=== PATIENT | male | born 1985 | race Caucasian/White ===

== ENCOUNTER 2016-05-02 18:55 | Emergency (ER) | payer BC ==
[2016-05-02] MEDS ORDERED: NS 1,000 ML IV ONE ×2 (19:34→19:59)
[2016-05-02] MEDS ORDERED: IPRATROPIUM/ALBUTEROL 3 ML DEYVIAL IH ONE (19:38)
--- NOTE | 2016-05-02 19:39 | UCPHY ---
H & P Patient Type: Established Chief Complaint Nursing Narrative: fever, chills, productive cough since saturday, diaphoretic, pale Time Seen by Provider: 05/02/16 19:11 HPI/ROS: 30-year-old male presents complaining of cough, fevers chills weakness., sore throat. Patient vapes. Review of systems As per HPI General positive fever positive chills positive weakness HEENT no eye pain no eye discharge. No eye redness, positive sore throat Respiratory positive cough positive shortness of breath Cardiac no chest pain, no peripheral edema GI no abdominal pain, no diarrhea, no constipation, no nausea, no vomiting no flank pain, no hematuria, no dysuria Musculoskeletal no myalgias, no joint pain Heme no easy bruising, no easy bleeding Endo no polyuria, no polydipsia Skin no rashes, no pruritus Neuro no syncope, no dizziness, no headaches Psych is no suicidal ideation, no homicidal ideation Source: Patient - Personal History Current Tetanus/Diphtheria Vaccine: Unsure - Medical/Surgical History Hx Asthma: No Hx Chronic Respiratory Disease: No Hx Diabetes: No Hx Cardiac Disease: No Hx Renal Disease: No Hx Cirrhosis: No Hx Alcoholism: No Hx HIV/AIDS: No Hx Splenectomy or Spleen Trauma: No Other PMH: hx of bronchitis, history of prior hip surgery - Family History Significant Family History: No pertinent family hx - Social History Smoking Status: Former smoker Alcohol Use: Rarely - Physical Exam Exam: 30-year-old male tachypneic tachycardic, appears ill Atraumatic normocephalic Pupils round reactive to light bilaterally extraocular muscles intact anicteric Oropharynx mild erythema positive dry mucosa Neck supple no lymphadenopathy Lungs clear to auscultation bilaterally Heart rapid rate regular rhythm without murmur rub or gallop Abdomen nondistended bowel sounds present soft nontender Extremities no cyanosis clubbing edema Skin no rash Constitutional: Initial Vital Signs Temperature (C) 36.5 C 05/02/16 19:00 Heart Rate 89 05/02/16 19:00 Respiratory Rate 36 H 05/02/16 19:00 Blood Pressure 129/81 H 05/02/16 19:00 O2 Sat (%) 100 05/02/16 19:00 O2 Delivery Mode Room Air Allergies/Adverse Reactions: Penicillins Allergy (Verified 02/27/16 18:49) Home Medications: Medication Instructions Recorded AZITHROMYCIN [Z-PACK] 250 mg PO DAILY #6 tab 05/02/16 Benzonatate [Tessalon Pearles (RX)] 100 mg PO TID PRN #30 cap 05/02/16 Cefpodoxime Proxetil [Vantin] 200 mg PO BID #14 tab 05/02/16 Guaifenesin/Codeine Phosphate 15 ml PO Q6 PRN #240 ml 05/02/16 [Codeine-Guaifen 10-100 mg/5 ml] Medical Decision Making - Diagnostics Imaging: Chest x-ray bilateral early lower lobe bronchopneumonia ED Course/Re-evaluation: Patient seen and evaluated for cough fevers chills weakness sore throat IV established, 2 L normal saline given, ondansetron 4 mg IV Lab sent Mildly elevated WBC Lactic acid negative Chemistry within normal limits Influenza negative Strep negative Impression Bilateral lower lobe pneumonia Plan Given IV antibiotics in urgent care Given ceftriaxone 2 g IV piggyback Given azithromycin 500 mg IV piggyback Discharge home on Z-Alfonso, cefpodoxime, coding guaifenesin, Tessalon Perles Follow up with primary care physician - Data Points Laboratory Results: Laboratory Results 05/02/16 19:18 05/02/16 19:18 05/02/16 05/02/16 05/02/16 Unknown 19:18 19:13 WBC 11.73 H 10^3/uL (3.80-9.50) RBC 5.19 10^6/uL (4.40-6.38) Hgb 16.0 g/dL (13.7-17.5) Hct 46.0 % (40.0-51.0) MCV 88.6 fL (81.5-99.8) MCH 30.8 pg (27.9-34.1) MCHC 34.8 g/dL (32.4-36.7) RDW 12.0 % (11.5-15.2) Plt Count 288 10^3/uL (150-400) MPV 9.8 fL (8.7-11.7) Neut % (Auto) 73.0 % (39.3-74.2) Lymph % (Auto) 12.5 L % (15.0-45.0) [place] % (Auto) 12.0 % (4.5-13.0) Eos % (Auto) 1.9 % (0.6-7.6) Baso % (Auto) 0.3 % (0.3-1.7) Nucleat RBC Rel Count 0.0 % (0.0-0.2) Absolute Neuts (auto) 8.56 H 10^3/uL (1.70-6.50) Absolute Lymphs (auto) 1.47 10^3/uL (1.00-3.00) Absolute Monos (auto) 1.41 H 10^3/uL (0.30-0.80) Absolute Eos (auto) 0.22 10^3/uL (0.03-0.40) Absolute Basos (auto) 0.04 10^3/uL (0.02-0.10) Absolute Nucleated RBC 0.00 10^3/uL (0-0.01) Immature Gran % 0.3 % (0.0-1.1) Immature Gran # 0.03 10^3/uL (0.00-0.10) VBG Lactic Acid 1.5 mmol/L (0.7-2.1) Sodium 137 mEq/L (134-144) Potassium 4.1 mEq/L (3.5-5.2) Chloride 99 mEq/L (97-110) Carbon Dioxide 19 L mEq/l (22-31) Anion Gap 19 H mEq/L (8-16) BUN 17 mg/dL (7-23) Creatinine 1.0 mg/dL (0.7-1.3) Estimated GFR > 60 Glucose 80 mg/dL (70-100) Calcium 10.0 mg/dL (8.5-10.4) Total Bilirubin 1.1 mg/dL (0.1-1.4) AST 20 IU/L (17-59) ALT 21 IU/L (21-72) Alkaline Phosphatase 72 IU/L (38-126) Lactate Dehydrogenase 481 IU/L (313-618) Creatine Kinase 104 IU/L (0-224) Total Protein 8.2 g/dL (6.3-8.2) Albumin 4.4 g/dL (3.5-5.0) Influenza Typ A,B (DFA) NEGATIVE FOR FLU (NEGATIVE) Group A Strep Screen NEGATIVE (NEGATIVE) Group A Strep DNA Pending Medications Given: Discontinued Medications Acetaminophen (Tylenol) 650 mg PO EDNOW ONE Stop: 05/02/16 22:22 Last Admin: 05/02/16 22:20 Dose: 650 mg Acetaminophen/Hydrocodone Bitart (Hycet Oral Liquid) 15 ml PO EDNOW ONE Stop: 05/02/16 22:46 Last Admin: 05/02/16 23:03 Dose: 15 ml Albuterol/Ipratropium (Duoneb) 3 ml IH EDNOW ONE Stop: 05/02/16 19:39 Last Admin: 05/02/16 19:58 Dose: 3 ml Benzonatate (Tessalon Pearles) 200 mg PO EDNOW ONE Stop: 05/02/16 22:50 Last Admin: 05/02/16 23:03 Dose: 200 mg Sodium Chloride (Ns) 1,000 mls @ 0 mls/hr IV ONCE ONE PRN Reason: Wide Open Stop: 05/02/16 19:35 Last Admin: 05/02/16 19:30 Dose: 1,000 mls Sodium Chloride (Ns) 1,000 mls @ 0 mls/hr IV ONCE ONE PRN Reason: Wide Open Stop: 05/02/16 20:00 Last Admin: 05/02/16 20:00 Dose: 1,000 mls Ceftriaxone Sodium 2 gm/ (Dextrose) 50 mls @ 100 mls/hr IV EDNOW ONE PRN Reason: Protocol Stop: 05/02/16 21:38 Last Admin: 05/02/16 21:22 Dose: Not Given Azithromycin 500 mg/ Dextrose 255 mls @ 255 mls/hr IV DAILY MAMADOU PRN Reason: Protocol Stop: 06/02/16 08:59 Last Admin: 05/02/16 22:00 Dose: 255 mls Ceftriaxone Sodium 2 gm/ (Sodium Chloride) 100 mls @ 200 mls/hr IV EDNOW ONE PRN Reason: Protocol Stop: 05/02/16 21:48 Last Admin: 05/02/16 21:20 Dose: 100 mls Ondansetron HCl (Zofran) 4 mg IVP EDNOW ONE Stop: 05/02/16 22:22 Last Admin: 05/02/16 22:20 Dose: 4 mg Departure - Departure Disposition: Home, Routine, Self-Care Clinical Impression: Pneumonia Condition: Good Instructions: Pneumonia (ED) Referrals: IN STATE,. [Primary Care Provider] - As per Instructions Stand Alone Forms: Work Excuse Prescriptions: Guaifenesin/Codeine Phosphate [Codeine-Guaifen 10-100 mg/5 ml] 15 ml PO Q6 PRN # 240 ml PRN Reason: Cough, Severe Benzonatate [Tessalon Pearles (RX)] 100 mg PO TID PRN #30 cap PRN Reason: Cough, Severe Cefpodoxime Proxetil [Vantin] 200 mg PO BID #14 tab AZITHROMYCIN [Z-PACK] 250 mg PO DAILY #6 tab - PQRS PQRS Measurement: na
[2016-05-02 19:51] LABS: % IMMATURE GRANULYOCYTES 0.3 % (0.0-1.1); ABSOLUTE IMMATURE GRANULOCYTES 0.03 10^3/uL (0.00-0.10); ADD DIFF? NO; ADD MORPH? NO; ADD SCAN? NO; ATYPICAL LYMPHOCYTE FLAG 0 (0-99); FRAGMENT RBC FLAG 0 (0-99); LEFT SHIFT FLG 0 (0-99); LIPEMIA HEMOLYSIS FLAG 90 (0-99); MEAN CELL HEMOGLOBIN 30.8 pg (27.9-34.1); MEAN CELL HEMOGLOBIN CONCENTR. 34.8 g/dL (32.4-36.7); MEAN CELL VOLUME 88.6 fL (81.5-99.8); MEAN PLATELET VOLUME 9.8 fL (8.7-11.7); PLATELET CLUMPS FLAG 0 (0-99); PLATELET COUNT 288 10^3/uL (150-400); RED BLOOD CELL COUNT 5.19 10^6/uL (4.40-6.38)
[2016-05-02 20:04] LABS: ALANINE AMINOTRANSFERASE 21 IU/L (21-72); ALBUMIN 4.4 g/dL (3.5-5.0); ALKALINE PHOSPHATASE 72 IU/L (38-126); ANION GAP 19 mEq/L (8-16); ASPARTATE AMINOTRANSFERASE 20 IU/L (17-59); BILIRUBIN,TOTAL 1.1 mg/dL (0.1-1.4); CARBON DIOXIDE 19 mEq/l (22-31); CHLORIDE 99 mEq/L (97-110); GLOMERULAR FILTRATION RATE > 60; GLUCOSE 80 mg/dL (70-100); POTASSIUM 4.1 mEq/L (3.5-5.2); SODIUM 137 mEq/L (134-144); TOTAL PROTEIN 8.2 g/dL (6.3-8.2)
--- NOTE | 2016-05-02 20:45 | DX ---
PA and lateral chest. 05/02/2016. Clinical History: Cough. Fever. Comparison Study: None available. Findings: Patchy infiltrates in the lower lobes bilaterally suggests early bilateral bronchopneumonia . Heart size is normal. No pleural effusion.. Visualized osseous structures appear normal. Impression: Early bilateral lower lobe bronchopneumonia.
[2016-05-02] MEDS ORDERED: cefTRIAXone 2 GM in D5W 50 ML IV ONE (21:09)
[2016-05-02] MEDS ORDERED: NS 100 ML BAG (MINI-BAG) IV ONE (21:10)
[2016-05-02] MEDS ORDERED: cefTRIAXone 1 GM VIAL ONE (21:11)
[2016-05-02 21:16] LABS: LACTATE DEHYDROGENASE 481 IU/L (313-618)
[2016-05-02] MEDS ORDERED: AZITHROMYCIN 500 MG/5 ML VIAL IV ONE (21:25)
[2016-05-02] MEDS ORDERED: ACETAMINOPHEN 325 MG TAB ONE (21:59)
[2016-05-02] MEDS ORDERED: ONDANSETRON 4 MG/2 ML VIAL ONE (22:01)
[2016-05-02] MEDS ORDERED: ONDANSETRON 4 MG/2 ML VIAL IVP ONE (22:21)
[2016-05-02] MEDS ORDERED: ACETAMINOPHEN 325 MG TAB PO ONE (22:21)
[2016-05-02 22:30] VITALS: RESP 24; O2SAT 98
[2016-05-02] MEDS ORDERED: HYDROCOD/APAP 7.5/325 IN 15ML UDCUP PO ONE (22:45)
[2016-05-02] MEDS ORDERED: BENZONATATE 100 MG CAP PO ONE (22:49)
[2016-05-02 23:15] VITALS: BP 107/73; PULSE 84; TEMP 98.6
[2016-05-03] MEDS ORDERED: AZITHROMYCIN IV 500 MG in D5W 250 ML IV SCH (09:00)
== END 2016-05-02 23:15 | disposition home or self-care (01) ==
LOC: CED 18:55
DX: J18.9 Pneumonia, unspecified organism (principal); Z88.0 Allergy status to penicillin
CPT/HCPCS: 71020-PO; 80053-PO; 82550-PO; 83605-PO; 85025-PO; 87400-PO; 87880-PO; 96361-PO; 96365-PO; 96367-PO; 96375-PO; 99215-PO; G0463-PO; J0456; J0696; J2405

== ENCOUNTER 2017-02-11 20:27 | Emergency (ER) | payer BC ==
--- NOTE | 2017-02-11 20:38 | CPEKG ---
Heart Rate: 91 RR Interval: 659 P-R Interval: 156 QRSD Interval: 104 QT Interval: 368 QTC Interval: 453 P [place]: 71 QRS [place]: 103 T Wave [place]: 50 EKG Severity - OTHERWISE NORMAL ECG - EKG Impression: SINUS RHYTHM EKG Impression: RIGHT AXIS DEVIATION Electronically Signed By: Clarissa Whitten 11-Feb-2017 22:16:52
--- NOTE | 2017-02-11 20:52 | EDPHY ---
H & P Time Seen by Provider: 02/11/17 20:43 HPI/ROS: CHIEF COMPLAINT: Left hand, left foot and sharp left chest pain HISTORY OF PRESENT ILLNESS: The patient is a 31-year-old male with a history of bronchitis, pneumonia and anxiety who presents to the emergency department stating "I am hoping I am having an anxiety attack." Patient states that he has had anxiety in the past. 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 Last weekend his grandfather . He states that at 7:00 p.m. he developed left hand and left foot tingling. He then developed sharp left chest pain. It is now resolved. He has no shortness of breath cough. No fevers or chills. No focal weakness. No headache or neck pain. Patient has had no recent extensive travel. (He traveled to [place] last weekend). REVIEW OF SYSTEMS: My complete review of systems is negative except as mentioned in the HPI. Past Medical/Surgical History: Includes bronchitis and pneumonia Past surgical history: Hip surgery Social history: The patient smokes regularly. Smoking Status: Current some day smoker Physical Exam: Vitals noted GENERAL: Well-appearing, in no acute distress, alert. HEENT: Eyes normal to inspection, normal pharynx, no signs of dehydration. NECK: No thyromegaly, no lymphadenopathy, supple. RESPIRATORY: Clear to auscultation bilaterally, no rales, rhonchi or wheezing. CVS: Regular rate and rhythm, no rubs, murmurs, or gallops. ABDOMEN: Soft, nontender, nondistended, no organomegaly. BACK: Normal to inspection, no CVA tenderness. SKIN: Normal color, no rash, warm, dry. No pallor. EXTREMITIES: No pedal edema, no calf tenderness, no Homans sign or cords, no joint swelling. NEURO/PSYCH: Higher functions: Alert and Oriented x3. Normal speech and cognition. Normal mood and affect. Cranial nerves: Normal as tested. Cerebellar: Normal as tested. Normal gait. Peripheral exam: Normal motor exam. Normal sensation. Constitutional: Initial Vital Signs Temperature (C) 36.6 C 02/11/17 20:37 Heart Rate 89 02/11/17 20:37 Respiratory Rate 20 02/11/17 20:37 Blood Pressure 147/100 H 02/11/17 20:37 O2 Sat (%) 99 02/11/17 20:37 O2 Delivery Mode Room Air Allergies/Adverse Reactions: Penicillins Allergy (Verified 02/11/17 20:37) Home Medications: Medication Instructions Recorded NK [No Known Home Meds] 02/11/17 Medical Decision Making ED Course/Re-evaluation: In the emergency department I discussed possible etiologies with the patient. I answered all his questions. IV was placed. Laboratory studies, chest x-ray and EKG were obtained. The patient was given aspirin orally. Patient has a nonfocal neuro exam. I do not feel he needs head CT imaging at this time. EKG shows normal sinus rhythm, [normal rate, right axis deviation, normal intervals]. There are [no ST or T-wave abnormalities]. I reviewed the patient's laboratory studies. Cardiac enzymes and D-dimer were negative. CBC and chemistry were unremarkable. 2210: Chest x-ray: No acute disease noted. I discussed the results with Dr. Barnett. Rechecked the patient was doing well. He had no new complaints. Patient was given warnings prior to leaving. He will return with worsening symptoms. Differential Diagnosis: My differential includes but is not limited to ACS, acute OK, pulmonary embolus , pneumonia, bronchitis, pneumothorax, ischemic CVA, hemorrhagic CVA, dissection , aneurysm, anxiety - Data Points Laboratory Results: Laboratory Results 02/11/17 20:34 02/11/17 20:34 02/11/17 02/11/17 02/11/17 20:34 20:34 20:34 WBC 7.57 10^3/uL 10^3/uL (3.80-9.50) RBC 5.00 10^6/uL 10^6/uL (4.40-6.38) Hgb 15.6 g/dL g/dL (13.7-17.5) Hct 45.5 % % (40.0-51.0) MCV 91.0 fL fL (81.5-99.8) MCH 31.2 pg pg (27.9-34.1) MCHC 34.3 g/dL g/dL (32.4-36.7) RDW 12.5 % % (11.5-15.2) Plt Count 307 10^3/uL 10^3/uL (150-400) MPV 9.8 fL fL (8.7-11.7) Neut % (Auto) 61.7 % % (39.3-74.2) Lymph % (Auto) 26.9 % % (15.0-45.0) [place] % (Auto) 7.8 % % (4.5-13.0) Eos % (Auto) 2.5 % % (0.6-7.6) Baso % (Auto) 0.8 % % (0.3-1.7) Nucleat RBC Rel Count 0.0 % % (0.0-0.2) Absolute Neuts (auto) 4.67 10^3/uL 10^3/uL (1.70-6.50) Absolute Lymphs (auto) 2.04 10^3/uL 10^3/uL (1.00-3.00) Absolute Monos (auto) 0.59 10^3/uL 10^3/uL (0.30-0.80) Absolute Eos (auto) 0.19 10^3/uL 10^3/uL (0.03-0.40) Absolute Basos (auto) 0.06 10^3/uL 10^3/uL (0.02-0.10) Absolute Nucleated RBC 0.00 10^3/uL 10^3/uL (0-0.01) Immature Gran % 0.3 % % (0.0-1.1) Immature Gran # 0.02 10^3/uL 10^3/uL (0.00-0.10) D-Dimer < 0.27 ug/mLFEU ug/mLFEU (0.00-0.50) Sodium 142 mEq/L mEq/L (134-144) Potassium 3.5 mEq/L mEq/L (3.5-5.2) Chloride 101 mEq/L mEq/L (97-110) Carbon Dioxide 23 mEq/l mEq/l (22-31) Anion Gap 18 mEq/L H mEq/L (8-16) BUN 9 mg/dL mg/dL (7-23) Creatinine 0.9 mg/dL mg/dL (0.7-1.3) Estimated GFR > 60 Glucose 103 mg/dL H mg/dL (70-100) Calcium 9.8 mg/dL mg/dL (8.5-10.4) Troponin I 02/11/17 20:34 WBC RBC Hgb Hct MCV MCH MCHC RDW Plt Count MPV Neut % (Auto) Lymph % (Auto) [place] % (Auto) Eos % (Auto) Baso % (Auto) Nucleat RBC Rel Count Absolute Neuts (auto) Absolute Lymphs (auto) Absolute Monos (auto) Absolute Eos (auto) Absolute Basos (auto) Absolute Nucleated RBC Immature Gran % Immature Gran # D-Dimer Sodium Potassium Chloride Carbon Dioxide Anion Gap BUN Creatinine Estimated GFR Glucose Calcium Troponin I < 0.012 ng/mL ng/mL (0.000-0.034) Medications Given: Discontinued Medications Aspirin (Aspirin) 324 mg PO EDNOW ONE Stop: 02/11/17 20:55 Last Admin: 02/11/17 21:06 Dose: 324 mg Departure - Departure Disposition: Home, Routine, Self-Care Clinical Impression: Chest pain Qualifiers: Chest pain type: unspecified Qualified Code(s): R07.9 - Chest pain, unspecified Condition: Good Instructions: Chest Pain (ED) Additional Instructions: Your laboratory studies and chest x-ray were unremarkable. Return with increasing chest pain, shortness of breath, weakness, numbness or any other concerns. Referrals: Lupe Rick MD [Medical Doctor] - 3-4 days, if not improved
[2017-02-11] MEDS ORDERED: ASPIRIN 81 MG CHEWABLE TAB PO ONE (20:54)
[2017-02-11 20:57] LABS: % IMMATURE GRANULYOCYTES 0.3 % (0.0-1.1); ABSOLUTE IMMATURE GRANULOCYTES 0.02 10^3/uL (0.00-0.10); ADD DIFF? NO; ADD MORPH? NO; ADD SCAN? NO; ATYPICAL LYMPHOCYTE FLAG 0 (0-99); FRAGMENT RBC FLAG 0 (0-99); HEMATOCRIT 45.5 % (40.0-51.0); HEMOGLOBIN 15.6 g/dL (13.7-17.5); LEFT SHIFT FLG 0 (0-99); LIPEMIA HEMOLYSIS FLAG 90 (0-99); MEAN CELL HEMOGLOBIN 31.2 pg (27.9-34.1); MEAN CELL HEMOGLOBIN CONCENTR. 34.3 g/dL (32.4-36.7); MEAN PLATELET VOLUME 9.8 fL (8.7-11.7); PLATELET CLUMPS FLAG 10 (0-99); PLATELET COUNT 307 10^3/uL (150-400); RED CELL DISTRIBUTION WIDTH 12.5 % (11.5-15.2)
[2017-02-11 21:03] LABS: ANION GAP 18 mEq/L (8-16); CALCIUM 9.8 mg/dL (8.5-10.4); CARBON DIOXIDE 23 mEq/l (22-31); CHLORIDE 101 mEq/L (97-110); CREATININE 0.9 mg/dL (0.7-1.3); GLOMERULAR FILTRATION RATE > 60; GLUCOSE 103 mg/dL (70-100); POTASSIUM 3.5 mEq/L (3.5-5.2); SODIUM 142 mEq/L (134-144)
[2017-02-11 22:32] VITALS: BP 128/79; PULSE 76; RESP 18; TEMP 98.1; O2SAT 95
== END 2017-02-11 22:30 | disposition home or self-care (01) ==
LOC: CED 20:27
DX: R07.9 Chest pain, unspecified (principal); F17.200 Nicotine dependence, unspecified, uncomplicated
CPT/HCPCS: 71020-PO; 80048-PO; 84484-PO; 85025-PO; 85378-PO